=== PATIENT | female | born 2000 | race Caucasian/White ===

== ENCOUNTER → 2020-04-19 14:47 | Outpatient (BNVA) | payer OTHER, SELFPAY | PROVIDERS: Referring Provider Dermatology; Visit Provider Dermatology | DX: L70.0 Acne vulgaris (principal) | CPT/HCPCS: 99203; 99204 ==

== ENCOUNTER → 2025-05-23 10:59 | Outpatient (BNVA) | payer OTHER, SELFPAY | PROVIDERS: Visit Provider Nurse Practitioner | DX: M79.672 Pain in left foot (principal) | CPT/HCPCS: 73630 ==